=== PATIENT | female | born 1945 | race African-American/Black ===

== ENCOUNTER 2016-09-02 14:39 | Outpatient (CLI) | payer OTHER ==
[2015-08-02 07:25] VITALS: BMI 41.5
--- NOTE | 2016-09-02 15:00 | DI ---
EXAM: PA and lateral views of the chest HISTORY: Upper respiratory infection COMPARISON: Chest x-ray 09/29/2011 FINDINGS: The cardiomediastinal silhouette is normal. There is no pneumothorax or pleural effusion . There is no consolidation, nodule or mass. The osseous structures demonstrate degenerative disea se of the spine. IMPRESSION: No acute cardiopulmonary process
[2016-09-02 15:03] LABS: BASOPHILS % (AUTO) 0.6 % (0.0-3.0); EOSINOPHILS % (AUTO) 0.4 % (0.0-7.0); HEMATOCRIT 41.9 % (37.0-47.0); HEMOGLOBIN 13.7 g/dl (12.0-16.0); IMMATURE GRANULOCYTE % (AUTO) 0.2 % (0.0-5.0); LYMPHOCYTES # (AUTO) 1.5 K/uL (0.60-3.4); LYMPHOCYTES % (AUTO) 30.5 (10.0-50.0); MEAN CORPUSCULAR HEMOGLOBIN 28.8 pg (27.0-31.0); MEAN CORPUSCULAR HGB CONC 32.7 (31.8-35.4); MONOCYTES # (AUTO) 0.4 K/uL (0.4-2.0); NEUTROPHILS # (AUTO) 2.9 K/ul (2.0-6.9); NEUTROPHILS % (AUTO) 60.3; PLATELET COUNT 242 10^3/uL (140-440); RED BLOOD COUNT 4.76 10^6/ul (4.20-5.40); WHITE BLOOD COUNT 4.76 K/ul (4.6-10.2)
[2016-09-02 15:23] LABS: ALBUMIN 4.2 g/dL (3.4-5.0); ALBUMIN/GLOBULIN RATIO 0.98; ANION GAP 13.2; BILIRUBIN,TOTAL 0.43 mg/dL (0.00-1.20); BUN/CREATININE RATIO 8.1; CHOL/HDL RATIO 3.3 (4.5-5.5); CREATININE 1.11 mg/dL (0.60-1.30); POTASSIUM 3.2 mmol/L (3.5-5.10); TOTAL PROTEIN 8.5 g/dL (5.8-8.1)
== END 2016-09-02 14:40 | disposition home or self-care (01) ==
LOC: RAD 14:39
PROVIDERS: ATTEND Emergency Medicine
DX: J06.9 Acute upper respiratory infection, unspecified (principal); E66.9 Obesity, unspecified; E78.5 Hyperlipidemia, unspecified; G47.30 Sleep apnea, unspecified
CPT/HCPCS: 36415; 80053; 80061; 84480; 85025

== ENCOUNTER 2017-01-18 11:04 | Outpatient (CLI) ==
[2015-08-02 07:25] VITALS: BMI 41.5
[2017-01-18 11:40] LABS: BASOPHILS % (AUTO) 0.5 % (0.0-3.0); EOSINOPHILS # (AUTO) 0.1 K/ul (0.0-0.7); EOSINOPHILS % (AUTO) 2.2 % (0.0-7.0); HEMATOCRIT 36.2 % (37.0-47.0); IMMATURE GRANULOCYTE % (AUTO) 0.2 % (0.0-5.0); LYMPHOCYTES # (AUTO) 1.2 K/uL (0.60-3.4); LYMPHOCYTES % (AUTO) 29.2 (10.0-50.0); MEAN CORPUSCULAR HEMOGLOBIN 28.8 pg (27.0-31.0); MEAN CORPUSCULAR HGB CONC 33.1 (31.8-35.4); MEAN CORPUSCULAR VOLUME 86.8 fl (81.0-99.0); MONOCYTES # (AUTO) 0.3 K/uL (0.4-2.0); MONOCYTES % (AUTO) 7.1 (0-10); NEUTROPHILS # (AUTO) 2.5 K/ul (2.0-6.9); NEUTROPHILS % (AUTO) 60.8; PLATELET COUNT 223 10^3/uL (140-440); RED BLOOD COUNT 4.17 10^6/ul (4.20-5.40); WHITE BLOOD COUNT 4.07 K/ul (4.6-10.2)
--- NOTE | 2017-01-18 11:48 | MAMMO ---
EXAM: Bilateral digital screening mammogram History: Screening Comparison: Bilateral mammogram 10/04/2015 Findings: MLO and CC views of bilateral breasts demonstrate scattered fibroglandular breast parenchy ma. Stable benign intramammary lymph node within the upper-outer quadrant of the right breast. There are no developing masses, no suspicious microcalcifications and no architectural distortions Impression: Benign stable mammogram. Recommend followup routine screening mammography in 1 year. BIRADS 2
[2017-01-18 12:19] LABS: ALBUMIN 3.7 g/dL (3.4-5.0); ALBUMIN/GLOBULIN RATIO 0.95; ANION GAP 9.7; BILIRUBIN,TOTAL 0.32 mg/dL (0.00-1.20); BUN/CREATININE RATIO 16.04; CALCIUM 10.2 mg/dL (8.2-10.2); CHOL/HDL RATIO 3.4 (4.5-5.5); CREATININE 0.81 mg/dL (0.60-1.30); POTASSIUM 3.7 mmol/L (3.5-5.10); TOTAL PROTEIN 7.6 g/dL (5.8-8.1)
== END 2017-01-18 11:05 | disposition home or self-care (01) ==
LOC: RAD 11:04
PROVIDERS: ATTEND Emergency Medicine
DX: Z12.31 Encounter for screening mammogram for malignant neoplasm of breast (principal); E78.5 Hyperlipidemia, unspecified; G47.30 Sleep apnea, unspecified
CPT/HCPCS: 36415; 77067; 80053; 80061; 84443; 85025

== ENCOUNTER 2017-06-25 11:42 | Outpatient (CLI) ==
[2015-08-02 07:25] VITALS: BMI 41.5
== END 2017-06-25 11:43 | disposition home or self-care (01) ==
LOC: RHC-LAB 11:42
PROVIDERS: ATTEND Emergency Medicine
DX: E78.5 Hyperlipidemia, unspecified (principal); E66.9 Obesity, unspecified; M47.26 Other spondylosis with radiculopathy, lumbar region
CPT/HCPCS: 36415; 80053; 80061; 84443; 85025

== ENCOUNTER 2017-06-25 13:51 | Outpatient (CLI) ==
[2015-08-02 07:25] VITALS: BMI 41.5
--- NOTE | 2017-06-26 22:48 | MRI ---
EXAM: Lumbar spine MRI without contrast. HISTORY: Backache. COMPARISON: Lumbar spine MRI 06/29/2014. TECHNIQUE: Multiplanar, multisequence MR images were acquired of the lumbar spine without contrast. FINDINGS: Conus medullaris ends at L1-2 and has normal signal intensity. Five non-rib bearing lumba r vertebra are present. There is mild thoracolumbar dextroscoliosis centered at L1-2 and mild accent uation of the usual lumbar lordosis. The lumbar vertebra are normal in height and intrinsic bone mar row signal. There is minor lumbar ventral spondylosis and developing disc desiccation at L3-4. At L 5-S1, there is a minor diffuse disc osteophyte complex that is asymmetric to the right with moderate to marked right lateral disc space narrowing, disc desiccation and minor endplate irregularity. The partially visualized liver and spleen are unremarkable. There is mild bilateral pelvocaliectasis that could be due to normal variation. There are no paravertebral masses. There is focal osteoarth rosis along the left sacroiliac joint. L1-2: The intervertebral disc is normal. L2-3: There is a minor disc bulge that is asymmetric to the right and minor bilateral facet arthropa thy and mild ligamentum flavum hypertrophy. There is no central canal stenosis or foraminal stenosis . L3-4: There is a mild disc bulge which narrows the inferior neural foramina bilaterally and mild jennifer ateral hypertrophic facet arthropathy and ligamentum flavum hypertrophy. Small degenerative cysts ar e present along the posterior left facet joint and there is a tiny left facet effusion. There is pro minent dorsal epidural fat without central canal stenosis. Minor bilateral foraminal stenosis is pre sent. L4-5: There is a mild disc bulge that is asymmetric to the right which narrows the inferior neural f oramina bilaterally and moderate bilateral hypertrophic facet arthropathy and ligamentum flavum hyper trophy, greater on the left. There is a small left facet effusion with a few tiny degenerative cysts . There is prominent dorsal epidural fat. These findings cause minor central canal stenosis and min or right and mild left neural foraminal stenosis. AP diameter of the thecal sac is 9.5 mm. L5-S1: There is a diffuse disc bulge that is asymmetric to the right and moderate bilateral hypertro phic facet arthropathy and ligamentum flavum hypertrophy. The pars interarticularis is not well seen. Evaluation for defects cannot be done. There is mild bilateral foraminal stenosis. There is devel opmental mild narrowing of the thecal sac which measures 8.2 mm in AP diameter. IMPRESSION: 1. Mild thoracolumbar dextroscoliosis centered at L1-2. 2. Mild lumbar degenerative spondylosis and moderate bilateral L4-5 and L5-S1 hypertrophic facet art hropathy. 3. Minor L4-5 and mild L5-S1 central canal stenosis. 4. Focal left sacroiliac osteoarthrosis.
== END 2017-06-25 13:52 | disposition home or self-care (01) ==
LOC: RAD 13:51
PROVIDERS: ATTEND Emergency Medicine
DX: M47.26 Other spondylosis with radiculopathy, lumbar region (principal)

== ENCOUNTER 2017-10-18 14:27 | Outpatient (CLI) ==
[2015-08-02 07:25] VITALS: BMI 41.5
== END 2017-10-18 14:28 | disposition home or self-care (01) ==
LOC: RHC-LAB 14:27
PROVIDERS: ATTEND Emergency Medicine
DX: E78.5 Hyperlipidemia, unspecified (principal); E66.9 Obesity, unspecified; G44.52 New daily persistent headache (NDPH)
CPT/HCPCS: 36415; 80053; 80061; 84443; 85025; 85651

== ENCOUNTER 2018-01-19 10:29 | Outpatient (CLI) ==
[2015-08-02 07:25] VITALS: BMI 41.5
--- NOTE | 2018-01-21 10:13 | MAMMO ---
EXAM: Bilateral digital screening mammogram (2-D and 3-D) History: Screening Comparison: Bilateral mammogram 01/18/2017 Findings: MLO and CC views of bilateral breasts demonstrate scattered fibroglandular breast parenchy ma.. CAD was reviewed by the radiologist. Tomosynthesis was performed. There are no dominant masses , no suspicious microcalcifications and no architectural distortions Impression: Stable negative mammogram. Recommend followup routine screening mammography in 1 year. BIRADS 1
== END 2018-01-19 10:30 | disposition home or self-care (01) ==
LOC: RAD 10:29
PROVIDERS: ATTEND Nurse Practitioner Family
DX: Z12.31 Encounter for screening mammogram for malignant neoplasm of breast (principal)
CPT/HCPCS: 77067